=== PATIENT | male | born 1950 | race Hispanic/Latino ===

== ENCOUNTER 2018-03-30 06:36 | Day surgery (SDC) | payer MEDICARE ==
[2018-03-30] MEDS ORDERED: ECOTRIN PO ONE (07:36)
[2018-03-30 07:50] LABS: Basophils # (Auto) 0.1 K/mm3 (0.0-0.1); Basophils % (Auto) 1.1 % (0.0-1.8); Eosinophils # (Auto) 0.3 K/mm3 (0.0-0.4); Eosinophils % (Auto) 3.8 % (0.0-4.3); Hematocrit 42.8 % (35.5-45.6); Hemoglobin 14.6 gm/dl (11.8-15.2); Lymphocytes # (Auto) 1.4 K/mm3 (1.2-5.4); Lymphocytes % (Auto) 19.3 % (13.4-35.0); Mean Corpuscular HGB Conc 34 % (32-34); Mean Corpuscular Volume 88 fl (84-94); Monocytes # (Auto) 0.6 K/mm3 (0.0-0.8); Monocytes % (Auto) 7.4 % (0.0-7.3); Platelet Count 222 K/mm3 (140-440); Red Blood Count 4.89 M/mm3 (3.65-5.03); Red Cell Distribution Width 13.4 % (13.2-15.2)
[2018-03-30] MEDS ORDERED: NACL 0.9% 500 ML 500 ML IV SCH (08:00)
[2018-03-30 08:01] LABS: INR 0.9 (0.87-1.13)
[2018-03-30 08:02] LABS: Partial Thromboplastin Time 25.3 Sec. (24.2-36.6)
[2018-03-30 08:04] LABS: BUN/Creatinine Ratio 30; Blood Urea Nitrogen 21 mg/dL (9-20); Calcium 8.9 mg/dL (8.4-10.2)
[2018-03-30 08:05] LABS: Hemolysis Index 4
[2018-03-30] MEDS ORDERED: HumuLIN R ONE (08:23)
[2018-03-30] MEDS ORDERED: VERSED ONE (08:27)
[2018-03-30] MEDS ORDERED: SUBLIMAZE ONE (08:27)
[2018-03-30] MEDS ORDERED: XYLOCAINE 2% INFILTRATI ONE (08:27)
[2018-03-30] MEDS ORDERED: HEPARIN/NS 5000 UNIT/500ML(CATH LAB) 1,000 ML IR ONE (08:27)
[2018-03-30] MEDS ORDERED: HEPARIN 10,000 UNITS/10 ML ONE (08:27)
[2018-03-30] MEDS ORDERED: CALAN ONE (08:27)
[2018-03-30] MEDS ORDERED: NACL 0.9% 500 ML 500 ML ONE (08:28)
[2018-03-30] MEDS: NITROGLYCERIN SYRINGE 3 ML ONE ×2 (08:55→09:00)
--- NOTE | 2018-03-30 13:21 | Cardiac Catherization Report ---
LEFT HEART CATHETERIZATION ORDERING PHYSICIAN: Antonia Powell MD INDICATION FOR PROCEDURE: Abnormal myocardial perfusion scan and stable angina. PROCEDURES PERFORMED: 1. Selective left and right coronary angiography. 2. A left ventriculogram was not performed. DESCRIPTION OF PROCEDURE: After obtaining consent, the patient was draped using sterile technique. A 2% lidocaine was injected into the right wrist. A 6-[place] vascular sheath was inserted into the right radial artery. A 6-[place] JL3.5 catheter was used to selectively engage left coronary artery. A 6-[place] JR4 catheter was used to selectively engage right coronary artery. A left ventriculogram was not performed due to the history of possible left ventricular thrombus. No complications occurred during the procedure. Hemostasis was achieved at the end of the procedure using manual pressure. Estimated blood loss was minimal. SPECIMEN REMOVED: None. SEDATION ADMINISTERED: 1 mg of IV Versed and 50 mcg of IV fentanyl. Physician and patient [id number] sedation start time 8:55 a.m. Physician and patient [id number] sedation stop time is 9:08 a.m. Total sedation time is 13 minutes. HEMODYNAMICS: Aortic pressure is ____/70. CARDIAC STRUCTURES: Left ventriculogram was not performed due to the history of possible left ventricular thrombus. CORONARY ANATOMY: 1. This is a right dominant circulation. 2. The left main has [id number] diffuse luminal irregularities. 3. The left anterior descending artery exhibits diffuse proximal disease that is mild. There is, however, a focal 80% stenosis noted in the proximal to mid LAD right after the takeoff of a large diagonal artery. There ____ tapers distally and wraps around the apex. There is a 50%-60% focal stenosis noted distally. 4. The left circumflex artery is a small caliber vessel. There is an 80% stenosis in the proximal segment of the second obtuse marginal. There is also a 70% lesion noted in the proximal segment of the posterolateral obtuse marginal. The AV groove vessel is small and diffusely diseased. 5. The right coronary artery is a dominant vessel. There is a 20% lesion noted in the proximal right coronary artery. There is another 70% lesion noted in the distal right coronary artery. The right coronary artery is moderately ectatic. IMPRESSION: Evidence of significant 3-vessel disease with an 80% proximal LAD, 80% proximal OM2 and 70% posterolateral obtuse marginal as well as a 70% distal right coronary artery with a moderately ectatic vessel. A left ventriculogram was not performed due to the history of possible left ventricular thrombus. RECOMMENDATIONS: The patient will be recommended to continue medical therapy. We will review along with Interventional Cardiology as well as Cardiothoracic Surgery and the anatomy and decide on the most appropriate revascularization strategies. JOB# [id number]/[id number]
[2018-04-01 11:34] VITALS: BP 137/78
== END 2018-03-30 14:30 | disposition home or self-care (01) ==
LOC: CATHLABREC 06:36
PROVIDERS: ATTEND Internal Medicine
DX: I25.118 Atherosclerotic heart disease of native coronary artery with other forms of angina pectoris (principal); I10 Essential (primary) hypertension; I73.9 Peripheral vascular disease, unspecified; E78.00 Pure hypercholesterolemia, unspecified; G47.30 Sleep apnea, unspecified; M19.90 Unspecified osteoarthritis, unspecified site; Z87.442 Personal history of urinary calculi; Z98.890 Other specified postprocedural states; Z79.84 Long term (current) use of oral hypoglycemic drugs; Z79.899 Other long term (current) drug therapy; Z87.891 Personal history of nicotine dependence; Z79.82 Long term (current) use of aspirin; Z98.49 Cataract extraction status, unspecified eye; Z79.01 Long term (current) use of anticoagulants
CPT/HCPCS: 36415; 80048; 82962; 85025; 85610; 85730; 93005; 93010; 93306; 93454; 96372; 99156; C1894; J1644; J2250; J3010; J7040; J1815; Q9967